=== PATIENT | male | born 1960 | race Caucasian/White ===

== ENCOUNTER → 2016-05-08 | Outpatient (CLI) | payer OTHER ==
[~2016-05-08] MED LIST: ACET-1311 PO; ALLO300T2 PO; IBUP-1451 PO; ONDA4TAB10 SL; TRIA1SPR4 NAE; TRIA3AER NAE; URC10 PO
[2016-05-08 17:42] LABS: COMPLETE YES; EOS % 2.1 %; HEMATOCRIT 43.6 % (42-52); IG% 0.4 %; LYMPH % 26.1 %; LYMPH ABS # 1.47 K/uL (1.2-3.4); MEAN CELL VOLUME 87.7 fL (80-100); MEAN CORPUSCULAR HEMOGLOBIN 29.4 pg (25-34); MEAN CORPUSCULAR HGB CONC 33.5 g/dl (32-36); MEAN PLATELET VOLUME 10.8 fL (7.4-10.4); MONO % 7.4 %; PLATELET COUNT 148 K/uL (130-400); RED BLOOD COUNT 4.97 M/uL (4.7-6.1); WHITE BLOOD COUNT 5.64 K/uL (4.8-10.8)
[2016-05-08 18:20] LABS: ALT/SGPT 34 U/L (12-78); AST/SGOT 15 U/L (15-37); BLOOD UREA NITROGEN 25 mg/dl (7-18); BUN/CREATININE RATIO 27.7 (10-20); CALCIUM 8.3 mg/dl (8.5-10.1); CARBON DIOXIDE 27 mmol/L (21-32); CHLORIDE 111 mmol/L (98-107); CREATININE 0.92 mg/dl (0.60-1.40); GLUCOSE 77 mg/dl (70-99); SODIUM 145 mmol/L (136-145)
[2016-05-08 18:30] LABS: ALB/GLOB RATIO 1.2 (0.9-2); ALKALINE PHOSPHATASE 96 U/L (45-117); THYROID STIMULATING HORMONE 0.881 uIu/ml (0.300-4.500)
== END | disposition home or self-care (01) ==
LOC: C.LAB1850 17:13
PROVIDERS: ATTEND Internal Medicine
DX: E55.9 Vitamin D deficiency, unspecified (principal); N20.0 Calculus of kidney; R53.83 Other fatigue

== ENCOUNTER → 2016-08-24 | Outpatient (CLI) | payer OTHER ==
--- NOTE | 2016-08-24 14:28 | DIAGNOSTIC IMAGING REPORT ---
KUB HISTORY: Staghorn calculus COMPARISON: KUB 12/28/2015. FINDINGS: The bowel gas pattern is unremarkable. There are no dilated loops of small bowel to suggest an obstruction. There are few stones within the lower pole the left kidney. Dominant stone measures 5 mm. No right renal calculi. No ureteral calculi. No pneumoperitoneum or pneumatosis. IMPRESSION: Left-sided nephrolithiasis. No ureteral calculi. Electronically signed by: Nik Beltran M.D. 08/24/2016 2:26 PM Dictated Date/Time: 08/24/2016 2:26 PM
== END | disposition home or self-care (01) ==
LOC: C.RADBC 14:10
PROVIDERS: ATTEND Urology
DX: N20.0 Calculus of kidney (principal)

== ENCOUNTER 2016-09-15 11:37 | Emergency (ER) | payer OTHER ==
[~2016-09-15] VITALS: Ht 182.9 cm; Wt 103.8 kg
[~2016-09-15 11:37] MED LIST changes: -ONDA4TAB10 SL; -TRIA1SPR4 NAE
[2016-09-15 11:40] VITALS: TEMP 36.6; Ht 182.9 cm; Wt 103.8 kg
[2016-09-15 11:51] VITALS: O2SAT 96
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
[2016-09-15 12:11] LABS: MEAN CELL VOLUME 88.1 fL (80-100); MEAN CORPUSCULAR HEMOGLOBIN 30.7 pg (25-34); MEAN CORPUSCULAR HGB CONC 34.9 g/dl (32-36); MEAN PLATELET VOLUME 10.5 fL (7.4-10.4); PLATELET COUNT 140 K/uL (130-400); RED BLOOD COUNT 5.11 M/uL (4.7-6.1); WHITE BLOOD COUNT 6.62 K/uL (4.8-10.8)
[2016-09-15 12:27] LABS: BLOOD UREA NITROGEN 19 mg/dl (7-18); BUN/CREATININE RATIO 18.6 (10-20); CALCIUM 8.5 mg/dl (8.5-10.1); CARBON DIOXIDE 24 mmol/L (21-32); CHLORIDE 108 mmol/L (98-107); GLUCOSE 85 mg/dl (70-99); POTASSIUM 3.8 mmol/L (3.5-5.1); SODIUM 141 mmol/L (136-145)
[2016-09-15] MEDS ORDERED: TRIA1SPR4 NAE (12:42)
[2016-09-15 12:46] VITALS: O2SAT 95
--- NOTE | 2016-09-15 12:50 | DIAGNOSTIC IMAGING REPORT ---
TWO VIEW CHEST CLINICAL HISTORY: Wheezing. Atypical chest pain and dyspnea. FINDINGS: PA and lateral chest radiographs are compared to study dated 07/14/2014. The cardiomediastinal silhouette is unremarkable. Linear atelectasis versus scarring is noted at the left lung base. The lungs and pleural spaces are otherwise clear. There is no pneumothorax. The bony thorax appears intact. IMPRESSION: No active disease in the chest. Electronically signed by: Shon Luis M.D. 09/15/2016 12:49 PM Dictated Date/Time: 09/15/2016 12:48 PM
[2016-09-15 13:51] VITALS: BP 148/92; PULSE 58
[2016-09-15] MEDS ORDERED: ONDA4TAB10 SL (13:52)
== END 2016-09-15 14:04 | disposition home or self-care (01) ==
LOC: C.EDB 11:39 → C.EDC 14:04
DX: R11.0 Nausea (principal); R06.02 Shortness of breath; R42 Dizziness and giddiness; J34.89 Other specified disorders of nose and nasal sinuses; F17.210 Nicotine dependence, cigarettes, uncomplicated

== ENCOUNTER → 2016-11-12 | Outpatient (CLI) | payer OTHER ==
[~2016-11-12] MED LIST changes: +ONDA4TAB10 SL; +TRIA1SPR4 NAE; -TRIA3AER NAE
[2016-11-12 16:57] LABS: BASO % 0.1 %; BASO ABS # 0.01 K/uL (0-0.2); COMPLETE YES; EOS % 1.3 %; HEMATOCRIT 44.5 % (42-52); IG% 0.4 %; LYMPH % 20.2 %; LYMPH ABS # 1.53 K/uL (1.2-3.4); MEAN CELL VOLUME 89.4 fL (80-100); MEAN CORPUSCULAR HEMOGLOBIN 30.1 pg (25-34); MEAN CORPUSCULAR HGB CONC 33.7 g/dl (32-36); MEAN PLATELET VOLUME 10.6 fL (7.4-10.4); MONO % 5.5 %; NEUT % 72.5 %; PLATELET COUNT 154 K/uL (130-400); RED BLOOD COUNT 4.98 M/uL (4.7-6.1); WHITE BLOOD COUNT 7.58 K/uL (4.8-10.8)
[2016-11-12 17:27] LABS: BLOOD UREA NITROGEN 14 mg/dl (7-18); BUN/CREATININE RATIO 14.8 (10-20); CALCIUM 8.2 mg/dl (8.5-10.1); CARBON DIOXIDE 28 mmol/L (21-32); CHLORIDE 109 mmol/L (98-107); CREATININE 0.96 mg/dl (0.60-1.40); GLUCOSE 72 mg/dl (70-99); POTASSIUM 4.1 mmol/L (3.5-5.1); SODIUM 140 mmol/L (136-145)
[2016-11-12 17:30] LABS: CHOLESTEROL 166 mg/dl (0-200); CHOLESTEROL/HDL RATIO 4.9; HDL CHOLESTEROL 34 mg/dl; LDL CHOLESTEROL CALCULATED 74 mg/dl; TRIGLYCERIDES 290 mg/dl (0-150); VERY LOW DENSITY LIPOPROT CALC 58 mg/dl
== END | disposition home or self-care (01) ==
LOC: C.LAB1850 15:52
PROVIDERS: ATTEND Internal Medicine
DX: E55.9 Vitamin D deficiency, unspecified (principal); R53.81 Other malaise; N20.0 Calculus of kidney

== ENCOUNTER → 2017-03-22 | Outpatient (CLI) | payer OTHER ==
[~2017-03-22] MED LIST changes: -ONDA4TAB10 SL
--- NOTE | 2017-03-22 14:46 | DIAGNOSTIC IMAGING REPORT ---
KUB CLINICAL HISTORY: 56 years-old Male presenting with N20.0 Nephrolithiasis. TECHNIQUE: Single supine view of the abdomen was obtained. COMPARISON: 08/24/2016. FINDINGS: Nonobstructive bowel gas pattern. No gross pneumoperitoneum. Allowing for bowel gas and stool, left renal calculi again noted, unchanged in position. No radiographically apparent right renal calculi. Ovoid calcification projects immediately inferior to the left transverse process of L5 along the expected course of the left ureter, not apparent on the prior radiograph. Degenerative changes of the spine. IMPRESSION: 1. Ovoid calcification projects over the course of the left ureter at the level of the L5 transverse process. This could represent a mid left ureteral calculus. 2. Left renal calculi. No radiographically apparent right renal calculi. Electronically signed by: Vladimir Quintana M.D. 03/22/2017 2:44 PM Dictated Date/Time: 03/22/2017 2:41 PM
[2017-03-22 15:23] LABS: HEMATOCRIT 45.1 % (42-52); HEMOGLOBIN 15.5 g/dL (14.0-18.0); MEAN CELL VOLUME 87.2 fL (80-100); MEAN CORPUSCULAR HGB CONC 34.4 g/dl (32-36); MEAN PLATELET VOLUME 10.7 fL (7.4-10.4); PLATELET COUNT 155 K/uL (130-400); RED CELL DISTRIBUTION WIDTH SD 38.4 fL (36.4-46.3); WHITE BLOOD COUNT 5.99 K/uL (4.8-10.8)
[2017-03-22 15:44] LABS: ALBUMIN 3.8 gm/dl (3.4-5.0); ALT/SGPT 41 U/L (12-78); BLOOD UREA NITROGEN 18 mg/dl (7-18); CALCIUM 8.4 mg/dl (8.5-10.1); CARBON DIOXIDE 27 mmol/L (21-32); CHOLESTEROL 193 mg/dl (0-200); CREATININE 0.89 mg/dl (0.60-1.40); GLUCOSE 95 mg/dl (70-99); LIPASE 104 U/L (73-393); SODIUM 138 mmol/L (136-145)
[2017-03-22 15:47] LABS: ALKALINE PHOSPHATASE 95 U/L (45-117); AST/SGOT 22 U/L (15-37); LDL CHOLESTEROL CALCULATED 126 mg/dl; TOTAL PROTEIN 7.2 gm/dl (6.4-8.2)
== END | disposition home or self-care (01) ==
LOC: C.RAD1850 14:16
PROVIDERS: ATTEND Internal Medicine
DX: N20.0 Calculus of kidney (principal); E78.2 Mixed hyperlipidemia; E55.9 Vitamin D deficiency, unspecified; R11.0 Nausea

== ENCOUNTER 2017-10-25 10:38 | Emergency (ER) | payer OTHER ==
[~2017-10-25] VITALS: Ht 182.9 cm; Wt 107.6 kg
[2017-10-25 10:40] VITALS: BP 131/88; TEMP 36.9; Ht 182.9 cm; Wt 107.6 kg
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
[2017-10-25 12:10] VITALS: PULSE 85; O2SAT 98
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
== END 2017-10-25 12:23 | disposition home or self-care (01) ==
LOC: C.EDB 10:39 → C.EDD 12:23
DX: M25.511 Pain in right shoulder (principal); V59.40XA Driver of pick-up truck or van injured in collision with unspecified motor vehicles in traffic accident, initial encounter; Z88.1 Allergy status to other antibiotic agents

== ENCOUNTER 2019-03-25 22:53 | Observation (INO) ==
[2019-03-25] MEDS ORDERED: SODIUM CHLORIDE 0.9% 1000ML 1,000 ML IV ONE (23:21)
[2019-03-25 23:49] LABS: Appearance Urine Cloudy (Clear); Bacteria Urine Automated Negative (Negative); Bilirubin Urine Negative (Negative); Blood Urine 1+ (Negative); Color Urine Yellow; Epithelial Cell Urine Auto 0-5 /lpf (0-5); Glucose Urine UA Negative (Negative); Ketones Urine Negative (Negative); Leukocyte Esterase Urine 3+ (Negative); Nitrite Urine Negative (Negative); Protein Urine Negative (Negative); RBC Urine Automated 0-4 /hpf (0-4); Specific Gravity Urine 1.006 (1.000-1.030); Urobilinogen Urine Negative (Negative); WBC Urine Automated >30 /hpf (0-5); pH Urine 5.5 (4.5-7.5)
[2019-03-26 00:11] LABS: Basophils # (auto) 0.01 K/uL (0-0.2); Basophils % (auto) 0.1 %; Eosinophils # (auto) 0.06 K/uL (0-0.5); Eosinophils % (auto) 0.6 %; Hematocrit (blood only) 44.4 % (42-52); Hemoglobin 15.2 g/dL (14.0-18.0); Immature Granulocytes # (auto) 0.08 K/uL (0.00-0.02); Immature Granulocytes % (auto) 0.7 %; Lymphocytes # (auto) 1.42 K/uL (1.2-3.4); Lymphocytes % (auto) 13.3 %; Mean Corpuscular Hemoglobin 30.4 pg (25-34); Mean Corpuscular Hgb Conc 34.2 g/dL (32-36); Mean Corpuscular Volume 88.8 fL (80-100); Monocytes # (auto) 0.63 K/uL (0.11-0.59); Monocytes % (auto) 5.9 %; Neutrophils # (auto) 8.47 K/uL (1.4-6.5); Neutrophils % (auto) 79.4 %; Platelet Count 170 K/uL (130-400); RDW Coefficient of Variation 12.4 % (11.5-14.5); RDW Standard Deviation 39.4 fL (36.4-46.3); White Blood Count 10.67 K/uL (4.8-10.8)
[2019-03-26 00:15] LABS: Influenza A virus by PCR Neg for Influ A (Neg)
[2019-03-26 00:30] LABS: Alanine Aminotransferase 36 U/L (12-78); Albumin Level 3.3 gm/dl (3.4-5.0); Aspartate Aminotransferase 16 U/L (15-37); BUN Creatinine Ratio 14.6 (10-20); Blood Urea Nitrogen 15 mg/dl (7-18); Calcium 8.3 mg/dl (8.5-10.1); Carbon Dioxide 27 mmol/L (21-32); Chloride 108 mmol/L (98-107); Creatinine Clr Calc Pharmacy 98.3 ml/min; Est GFR (African American) 92.6; Est GFR (Non-African American) 79.9; Glucose 100 mg/dl (70-99); Magnesium 2.1 mg/dl (1.8-2.4); Sodium 139 mmol/L (136-145)
[2019-03-26] MEDS ORDERED: OSELTAMIVIR PHOSPHATE 75 MG CAP PO STA (00:30)
[2019-03-26 00:32] LABS: INR 1.1 (0.9-1.1); Partial Thromboplastin Time 25.9 Seconds (21.0-31.0); Prothrombin Time 10.8 Seconds (9.0-12.0)
[2019-03-26 00:35] LABS: Albumin Globulin Ratio 0.8 (0.9-2); Alkaline Phosphatase 97 U/L (45-117); Bilirubin,Total 0.4 mg/dl (0.2-1); Globulin 4.2 gm/dl (2.5-4.0); Total Protein 7.5 gm/dl (6.4-8.2); Troponin I < 0.015 ng/ml (0-0.045)
[2019-03-26] MEDS ORDERED: SODIUM CHLORIDE 0.9% 1000ML 1,000 ML IV ONE (00:35)
[2019-03-26] MEDS ORDERED: IOVERSOL 100ml IV PRN (00:56)
[2019-03-26] MEDS ORDERED: cefTRIAXone SODIUM 2,000 MG/70 ML BAG IV STA (01:27)
--- NOTE | 2019-03-26 01:45 | Emergency Department Note ---
History of Present Illness General Chief complaint: Urinary Symptoms Stated complaint: FEELS OUT OF SORTS, POSSIBLE UTI History of Present Illness Maximum Pain Intensity: 0 This 58-year-old presents to the ER complaining of urinary symptoms, chills, lightheadedness and weakness Location: Generalized Quality: Weak Severity: Moderate Duration: Past few days Timing: Started a few days ago Context: Symptoms persisted and patient came in Modifying factors: better with rest; worse with urinating Patient is a history of kidney stones and had kidney stone procedures. He follows with [facility]. Patient denies chest pain, dyspnea, cough, congestion, numbness, tingling, localized weakness. Home Medications Home Medications Medication Instructions Recorded Confirmed Type allopurinol 300 mg tablet 300 mg PO DAILY 01/22/19 03/25/19 History cholecalciferol (vitamin D3) 25 2,000 units PO DAILY cap 01/22/19 03/25/19 History mcg (1,000 unit) capsule trospium 20 mg tablet 20 mg PO BID 01/22/19 03/25/19 History Allergies Allergy/AdvReac Type Severity Reaction Status Date / Time amoxicillin Allergy Unknown swelling Unverified 03/25/19 23:31 Past Med/Surg History Medical History (Updated 03/26/19 @ 01:42 by Mar Sanches PA-C) Ureterolithiasis Surgical History History of facial surgery History of rectal surgery S/P cholecystectomy Family History Mother Diabetes Father Diabetes Myocardial infarction Prostate cancer Sister Diabetes Grandfather (Paternal) Colon cancer Grandfather (Maternal) Myocardial infarction Grandmother (Paternal) Myocardial infarction Other Heart disease Hypertension Social History Preferred Language: Amharic Communication Ability: Effective Visual Impairment: No Limitations Hearing Ability: Normal marital status: Single Current Living Situation: Alone current occupational status: employed Feels Safe at Home: Yes Smoking Status: Never smoker Hx Alcohol Use: No (stopped drinking alcohol) Hx Substance Use: No Seatbelt Use: sometimes Sunscreen Use: No Review of Systems A total of 10 systems reviewed and were otherwise negative Physical Exam Vital Signs Vital Signs - 24 hr 03/25/19 22:57 03/25/19 23:35 03/26/19 00:48 Temperature 36.6 C Temperature Source Oral Pulse Rate 90 Pulse Rate [Finger] 86 Respiratory Rate 16 18 Respiratory Depth Normal Blood Pressure 165/84 H Blood Pressure [Right Arm] 158/96 H Blood Pressure Mean 111 Blood Pressure Mean [Right Arm] 116 Pulse Oximetry 97 97 97 Oxygen Delivery Method Room Air Room Air Room Air Sepsis Recent Fever Within 48 Hours No Sepsis New/Unexplained Change in Mental Status No Sepsis Action Taken by Nursing No Action Required VITALS: Vitals are noted on the nurse's note and reviewed by myself. Vital signs stable. GENERAL: White male, in no acute distress, nondiaphoretic, well-developed well- nourished. SKIN: Capillary reflex less than 2 seconds. HEENT: Normocephalic. PERRLA. EOMI. Nares patent. Mucous membranes moist. Neck is supple without nuchal rigidity. HEART: Regular rate and rhythm LUNGS: Clear to auscultation bilaterally without wheezes, rales or rhonchi. No retractions or accessory muscle use. ABDOMEN: Positive bowel sounds x 4. Normal tympanic percussion. Soft, minimal lower abdominal discomfort, without masses or organomegaly. Abad sign negative. No guarding or rebound tenderness. No CVA tenderness MUSCULOSKELETAL: No gross musculoskeletal defects. NEURO: Patient was alert and oriented to person place and time. Normal sensation to light and sharp touch. No focal neurological deficits. Course Administered Medications Ioversol (Optiray 320 100ml) 100 ml IV ONCE PRN PRN Reason: Interaction Checking Stop: 03/30/19 00:55 Last Admin: 03/26/19 00:56 Dose: 92 ml Documented by: [id number] Discontinued Medications Sodium Chloride (Nss 1000ml) 1,000 mls @ 999 mls/hr IV .Q1H1M ONE Stop: 03/26/19 00:21 Last Infusion: 03/26/19 01:26 Dose: 0 mls/hr Documented by: [id number] Admin: 03/26/19 00:09 Dose: 999 mls/hr Documented by: [id number] Sodium Chloride (Nss 1000ml) 1,000 mls @ 999 mls/hr IV .Q1H1M ONE Stop: 03/26/19 01:35 Last Admin: 03/26/19 00:47 Dose: 999 mls/hr Documented by: [id number] Oseltamivir Phosphate (Tamiflu) 75 mg PO NOW STA Stop: 03/26/19 00:31 Last Admin: 03/26/19 00:47 Dose: 75 mg Documented by: [id number] Medical Decision Making Medical Records Attestation: I reviewed the patient's medical records. Home Medications Current Medication List: was personally reviewed by me Laboratory Data Attestation: I reviewed the patient's lab results. Result diagrams: 03/25/19 23:55 03/25/19 23:55 Lab Results 03/25/19 03/25/19 03/25/19 Range/Units 23:37 23:37 23:55 WBC 10.67 (4.8-10.8) K/uL RBC 5.00 (4.7-6.1) M/uL Hgb 15.2 (14.0-18.0) g/dL Hct 44.4 (42-52) % MCV 88.8 (80-100) fL MCH 30.4 (25-34) pg MCHC 34.2 (32-36) g/dL RDW Std Deviation 39.4 (36.4-46.3) fL RDW Coeff of Isis 12.4 (11.5-14.5) % Plt Count 170 (130-400) K/uL MPV 10.0 (7.4-10.4) fL Immature Gran % (Auto) 0.7 % Neut % (Auto) 79.4 % Lymph % (Auto) 13.3 % Bartow % (Auto) 5.9 % Eos % (Auto) 0.6 % Baso % (Auto) 0.1 % Immature Gran # (Auto) 0.08 H (0.00-0.02) K/uL Neut # (Auto) 8.47 H (1.4-6.5) K/uL Lymph # (Auto) 1.42 (1.2-3.4) K/uL Bartow # (Auto) 0.63 H (0.11-0.59) K/uL Eos # (Auto) 0.06 (0-0.5) K/uL Baso # (Auto) 0.01 (0-0.2) K/uL PT (9.0-12.0) Seconds INR (0.9-1.1) APTT (21.0-31.0) Seconds PTT Ratio Sodium (136-145) mmol/L Potassium (3.5-5.1) mmol/L Chloride (98-107) mmol/L Carbon Dioxide (21-32) mmol/L Anion Gap (3-11) BUN (7-18) mg/dl Creatinine (0.6-1.4) mg/dl Est Cr Clr Drug Dosing ml/min Est GFR ( Amer) Est GFR (Non-Af Amer) BUN/Creatinine Ratio (10-20) Glucose (70-99) mg/dl POC Lactic Acid Joel (0.90-1.70) mmol/L Calcium (8.5-10.1) mg/dl Magnesium (1.8-2.4) mg/dl Total Bilirubin (0.2-1) mg/dl AST (15-37) U/L ALT (12-78) U/L Alkaline Phosphatase (45-117) U/L Troponin I (0-0.045) ng/ml Total Protein (6.4-8.2) gm/dl Albumin (3.4-5.0) gm/dl Globulin (2.5-4.0) gm/dl Albumin/Globulin Ratio (0.9-2) Urine Color Yellow Urine Appearance Cloudy A (Clear) Urine pH 5.5 (4.5-7.5) Ur Specific Abie 1.006 (1.000-1.030) Urine Protein Negative (Negative) Urine Glucose (UA) Negative (Negative) Urine Ketones Negative (Negative) Urine Blood 1+ H (Negative) Urine Nitrite Negative (Negative) Urine Bilirubin Negative (Negative) Urine Urobilinogen Negative (Negative) Ur Leukocyte Esterase 3+ H (Negative) Urine WBC (Auto) >30 H (0-5) /hpf Urine RBC (Auto) 0-4 (0-4) /hpf U Hyaline Cast (Auto) 1-5 (0-5) /lpf U Epithel Cells (Auto) 0-5 (0-5) /lpf Urine Bacteria (Auto) Negative (Negative) Influenza Type A (PCR) Neg for Influ A (Neg) Influenza Type B (PCR) Pos for Influ B A* (Neg) 03/25/19 03/25/19 03/26/19 Range/Units 23:55 23:55 00:03 WBC (4.8-10.8) K/uL RBC (4.7-6.1) M/uL Hgb (14.0-18.0) g/dL Hct (42-52) % MCV (80-100) fL MCH (25-34) pg MCHC (32-36) g/dL RDW Std Deviation (36.4-46.3) fL RDW Coeff of Isis (11.5-14.5) % Plt Count (130-400) K/uL MPV (7.4-10.4) fL Immature Gran % (Auto) % Neut % (Auto) % Lymph % (Auto) % Bartow % (Auto) % Eos % (Auto) % Baso % (Auto) % Immature Gran # (Auto) (0.00-0.02) K/uL Neut # (Auto) (1.4-6.5) K/uL Lymph # (Auto) (1.2-3.4) K/uL [place]ow # (Auto) (0.11-0.59) K/uL Eos # (Auto) (0-0.5) K/uL Baso # (Auto) (0-0.2) K/uL PT 10.8 (9.0-12.0) Seconds INR 1.1 (0.9-1.1) APTT 25.9 (21.0-31.0) Seconds PTT Ratio 1.0 Sodium 139 (136-145) mmol/L Potassium 4.0 (3.5-5.1) mmol/L Chloride 108 H (98-107) mmol/L Carbon Dioxide 27 (21-32) mmol/L Anion Gap 4.0 (3-11) BUN 15 (7-18) mg/dl Creatinine 1.04 (0.6-1.4) mg/dl Est Cr Clr Drug Dosing 98.3 ml/min Est GFR ( Amer) 92.6 Est GFR (Non-Af Amer) 79.9 BUN/Creatinine Ratio 14.6 (10-20) Glucose 100 H (70-99) mg/dl POC Lactic Acid Joel 1.83 H (0.90-1.70) mmol/L Calcium 8.3 L (8.5-10.1) mg/dl Magnesium 2.1 (1.8-2.4) mg/dl Total Bilirubin 0.4 (0.2-1) mg/dl AST 16 (15-37) U/L ALT 36 (12-78) U/L Alkaline Phosphatase 97 (45-117) U/L Troponin I < 0.015 (0-0.045) ng/ml Total Protein 7.5 (6.4-8.2) gm/dl Albumin 3.3 L (3.4-5.0) gm/dl Globulin 4.2 H (2.5-4.0) gm/dl Albumin/Globulin Ratio 0.8 L (0.9-2) Urine Color Urine Appearance (Clear) Urine pH (4.5-7.5) Ur Specific Abie (1.000-1.030) Urine Protein (Negative) Urine Glucose (UA) (Negative) Urine Ketones (Negative) Urine Blood (Negative) Urine Nitrite (Negative) Urine Bilirubin (Negative) Urine Urobilinogen (Negative) Ur Leukocyte Esterase (Negative) Urine WBC (Auto) (0-5) /hpf Urine RBC (Auto) (0-4) /hpf U Hyaline Cast (Auto) (0-5) /lpf U Epithel Cells (Auto) (0-5) /lpf Urine Bacteria (Auto) (Negative) Influenza Type A (PCR) (Neg) Influenza Type B (PCR) (Neg) Imaging Data Attestation: I personally reviewed and interpreted this imaging study as follows: Blood Pressure Blood Pressure Findings: Elevated blood pressure Blood Pressure Disposition: Referred to patients primary care provider MDM Narrative Prior records/ancillary studies reviewed and summarized above. Nursing notes reviewed. Additional history obtained from family. The patient's history was concerning for urinary problems, chills, lower abdominal discomfort. Differential diagnosis: Etiologies such as metabolic, infection, hypo/hyperglycemia, electrolyte abnormalities, cardiac sources, intracerebral event, toxicologic, neurologic, as well as others were entertained. Physical examination: As above. ER treatment provided: IV Lock IV fluids, Rocephin, Tamiflu On reassessment the patient felt better. Diagnostics interpretation by me: ECG: Ordered for weakness EKG: Normal sinus, normal intervals, no acute ST-T wave changes. Impression normal sinus interpreted by myself I think arrhythmia is unlikely. EKG shows normal sinus rhythm with no interval abnormalities such as QT prolongation or WPW. There are no findings to suggest Brugada syndrome. Cardiac monitoring in the emergency department reveals no tachycardic or bradycardic dysrhythmia. Hypertrophic cardiomyopathy was considered but there are no clear historical elements pointing toward this. EKG is not suggestive. The QRS voltage is not extremely large and there are no suggestive Q waves. The labs revealed positive influenza B. Lactic acid slightly elevated. Urine concerning for infection and sent for culture. No prior urine cultures. Imaging studies: CT ABDOMEN & PELVIS With Contrast: Lung bases: Lung bases: Normal Distal heart and esophagus: Normal Liver: No intrahepatic lesion or ductal dilation. Gallbladder: Absent Pancreas: Normal Spleen: Normal Adrenals: Normal Kidneys: Right kidney posterior medial mid pole 2.5 cm cyst. Nonobstructive 2, 3 mm left renal midpole cyst. Left-sided hydronephrosis, hydroureter with a 6 mm distal left ureteral stone at the level of the acetabulum image 2: 81. Bowel: Scattered left-sided and sigmoid diverticulosis. Negative for diverticulitis. Left anterior medial abdominal wall 3.3 cm defect with omental fat extending through it. Streaky changes in the mesenteric fat with multiple small lymph nodes scattered around the superior mesenteric vessels consistent with nonspecific panniculitis. Appendix is visualized and normal. Scattered colonic stool. Caliber of the small bowel loops is normal. Pelvis: Urinary bladder is unremarkable. No pelvic free fluid. Bones: Moderate bilateral hip joint and lower lumbar spine facet degenerative changes are seen. Impression: 1. 6 mm distal left ureteral stone with upstream hydroureter and hydronephrosis. 2. Additional left renal mid to lower pole 2, 3 mm stones. 3. Right renal cyst. 4. Medial left anterior abdominal wall hernia with the neck of 3.3 cm. Omental fat is seen extending through it. 5. Mild nonspecific midabdominal panniculitis of the mesentery. Radiologist: Forest Matute MD Chest x-ray with no acute consolidation, pneumothorax or free air per my interpretation Consultation: A consultation was placed with the hospitalist, Dr Walker. He was notified of the patient for evaluation for possible admission. The patient was evaluated in the ER for further treatment. Exam and history seem consistent with UTI with kidney stone concerning for possible pyelonephritis. Patient also has flu B. Patient was started on antibiotics and given Tamiflu. He is agreeable treatment plan of admission. Medicine was consulted. By the evaluation outlined above emergent etiologies such as electrolyte abnormalities, cardiac sources, intracerebral event, toxologic, neurologic, abnormalities blood glucose, metabolic, as well as others were deemed relatively unlikely. The pt informed about the findings as listed above. All questions were answered and pleased with the treatment. The chart was completed utilizing [employer] Speech voice recognition software. Grammatical errors, random word insertions, pronoun errors, and incomplete sentences are an occassional consequence of this system due to software limitations, ambient noise, and hardware issues. Any formal questions or concerns about the content, text, or information contained within the body of this dictation should be directly addressed to the physician assistant administrator for clarification. Case reviewed with my attending Impression & Plan Urinary tract infection, Renal colic on left side, Influenza B Discharge Plan Visit Data Chief Complaint: Urinary Symptoms Stated Complaint: FEELS OUT OF SORTS, POSSIBLE UTI ED Provider: [facility] ED Midlevel Provider: Mar Sanches Discharge Problem: Urinary tract infection, Renal colic on left side, Influenza B Patient Disposition: Admitted As Inpatient Condition: Fair Forms Stand Alone Forms: My [facility] Prescriptions Prescriptions: No Action allopurinol 300 mg tablet 300 mg PO DAILY RF: 0 trospium 20 mg tablet 20 mg PO BID RF: 0 cholecalciferol (vitamin D3) 1,000 unit capsule 2,000 units PO DAILY RF: 0 Referrals Referrals: Arcenio Emerson MD [Primary Care Provider] - Discharge Problem: Urinary tract infection Qualifiers: Urinary tract infection type: acute cystitis Hematuria presence: without hematuria Qualified Code(s): N30.00 - Acute cystitis without hematuria
--- NOTE | 2019-03-26 02:20 | History & Physical Report ---
Date of Service March 26, 2019 Assessment & Plan (1) Ureterolithiasis: 58 y/o M Hx nephrolithiasis. Presents with L flank pain, fevers/rigors, nausea, vomiting and dysuria x [address] of the abdomen demonstrated a 6mm distal L ureteral calculus with related hydronephrosis. Labs are notable for a +UA and a + influenza B swab, although it is unclear why the swab was obtained and does come as a bit of a surprise. Lactic acid is marginally elevated. It is noted that the initial CT report states that panniculitis is present, however, there is no clinical evidence of this. 1) Obstructing calculus with a UTI - pt placed on Ceftriaxone, Flomax, IVF - although distal, the stones size makes spontaneous passage less likely and we have consulted urology. Repeat lactic is pending. The pt takes Allopurinol to prevent additional stones, however, he admits to noncompliance. He has been duly informed that compliance with said medication may help prevent future stone formation. 2) Influenza B + - there is no clinical evidence which correlates with the + swab. He was provided with a dose of Tamiflu in the ER. No additional will be provided. 3) Smoker - does not currently express interest in cessation. Full code - SCDs pending urology evaluation Total time for this admit including review of labs, meds, imaging, records - discussion with pt and ER attending - 41 min (2) Urinary tract infection: History of Present Illness Chief Complaint: URI symptoms, flank/abdominal pain Primary Care Provider: Arcenio Emerson MD 58 y/o M Hx nephrolithiasis. Presents with L flank pain, fevers/rigors, nausea, vomiting and dysuria x [address] of the abdomen demonstrated a 6mm distal L ureteral calculus with related hydronephrosis. Labs are notable for a +UA and a + influenza B swab, although it is unclear why the swab was obtained and does come as a bit of a surprise. Lactic acid is marginally elevated. It is noted that the initial CT report states that panniculitis is present, however, there is no clinical evidence of this. PMH: 1) BPH - in chart - not treated 2) HLD - in primary care notes - borderline - not treated 3) Nephrolithiasis - BL staghorn calculi requiring surgery - uric acid stones Surgical: 1) Cholecystectomy 2) Staghorn calculi surgical excision Social: Smokes 5-6 [place]an cigarettes daily - states he does not inhale. Does not drink alcohol. Mostly retired. Family: Mother had dementia - at age 88 Father age 82 "wore out" Allergies Allergy/AdvReac Type Severity Reaction Status Date / Time amoxicillin Allergy Unknown swelling Unverified 03/25/19 23:31 Home Medications Home Medications Medication Instructions Recorded Confirmed Type allopurinol 300 mg tablet 300 mg PO DAILY 01/22/19 03/25/19 History cholecalciferol (vitamin D3) 25 2,000 units PO DAILY cap 01/22/19 03/25/19 History mcg (1,000 unit) capsule trospium 20 mg tablet 20 mg PO BID 01/22/19 03/25/19 History Past Med/Surg History Family History Mother Diabetes Father Diabetes Myocardial infarction Prostate cancer Sister Diabetes Grandfather (Paternal) Colon cancer Grandfather (Maternal) Myocardial infarction Grandmother (Paternal) Myocardial infarction Other Heart disease Hypertension Social History Preferred Language: Nicaraguan Communication Ability: Effective Visual Impairment: No Limitations Hearing Ability: Normal marital status: Single Current Living Situation: Alone current occupational status: employed Feels Safe at Home: Yes Smoking Status: Never smoker Hx Alcohol Use: No (stopped drinking alcohol) Hx Substance Use: No Seatbelt Use: sometimes Sunscreen Use: No Review of Systems Review of Systems: Gen: + Feveres, rigors, malaise ENT: Denies congestion, throat pain, hearing loss Eyes: Denies acute visual changes CV: Denies CP, palpitations Pulmonary: Denies SOB, cough, wheezing GI: + nausea and vomiting : Burning with urination - L flank pain Neuro: Denies acute or unilateral weakness, acute gait impairment, headache or acute visual changes Musculoskeletal: Denies joint pain, inflammation Endocrine: Denies polydipsia, polyuria Skin: Denies acute rashes or ulcers Physical Exam Physical Exam: General: AAO x 3, no distress ENT: No erythema or exudates, no thrush Eyes: CLIFFORD, EOMI Head and neck: Normocephalic, atraumatic, No JVD, neck is supple. Chest/heart: Nontender, S1,2, RRR, no murmurs, no gallops Lungs: CTAB, no wheezing or crackles Abdomen: Nontender, nondistended, BS+ - the abdomen is soft and there is no warmth, tenderness or erythema to support panniculitis Neuro: AAO x 3, speech is clear, no unilateral weakness or loss of sensation, coordination intact Musculoskeletal: No joint inflammation, muscle tenderness, FROM Skin: No acute rashes or ulcers Extremities: No clubbing, cyanosis, edema Results & Data Vital Signs (Past 12 Hours) Vital Signs Temp Pulse Pulse Resp BP BP Pulse Ox 03/26/19 00:48 86 18 158/96 H 97 03/25/19 23:35 97 03/25/19 22:57 97.9 F 90 16 165/[address] abdomen: 6mm obstructing calculus inthe distal L ureter L hydronephrosis Abdominal hernia and panniculitis. Code Status & VTE Plan VTE Prophylaxis Plan VTE Prophylaxis will be ordered: Yes PG Care Time/CCT Total # of Minutes Spent Total Time Spent with Patient: Total time spent is greater than 50% in coordination of care (as documented) at patient's floor/unit and/or counseling patient: (1) Urinary tract infection Hematuria presence: without hematuria Urinary tract infection type: acute cystitis Qualified Code(s): N30.00 - Acute cystitis without hematuria
[2019-03-26] MEDS ORDERED: MAGNESIUM HYDROXIDE SUSP 30 ML UDC PO PRN (03:03)
[2019-03-26] MEDS ORDERED: ONDANSETRON INJ 2 MG/ML 2 ML VIAL IV PRN (03:03)
[2019-03-26] MEDS ORDERED: ALUMINUM/MAGNESIUM SUSP 30 ML UDC PO PRN (03:03)
[2019-03-26] MEDS ORDERED: ZOLPIDEM TARTRATE 5 MG TAB PO PRN (03:03)
[2019-03-26] MEDS ORDERED: ACETAMINOPHEN 325 MG TAB PO PRN (03:03)
[2019-03-26] MEDS: D5W AND LACTATED RINGERS 1,000 ML IV SCH ×2 (03:54→11:49)
--- NOTE | 2019-03-26 07:10 | XRay Report ---
XR chest 1V portable CLINICAL HISTORY: Sepsis. COMPARISON STUDY: Chest radiograph July 13, 2013. FINDINGS: Lung volumes are at the lower limits of normal. There is no pneumothorax or pleural effusio n. There is no consolidation or evidence for pulmonary edema. Cardiomediastinal silhouette is normal. IMPRESSION: No acute cardiopulmonary findings. ACT 112: Negative or not required by law. Electronically signed by: Pavan Vargas M.D. 03/26/2019 7:08 AM
--- NOTE | 2019-03-26 07:22 | CT Scan Report ---
ABDOMEN AND PELVIS CT WITH IV CONTRAST CT DOSE: 855.70 mGy.cm HISTORY: Acute lower abdominal pain with urinary tract infection lower abd pain, UA sx, chills, ?pro state/kidney pr TECHNIQUE: Multiaxial CT images of the abdomen and pelvis were performed following the IV administrat ion of 92 cc of Optiray 320, A dose lowering technique was utilized adhering to the principles of AL AL. COMPARISON STUDY: CT abdomen and pelvis 04/08/2013 FINDINGS: Mild bronchial wall thickening of the right lung base. Lung bases are otherwise clear. There is no pn eumatosis or pneumoperitoneum. The imaged inferior cardiac chambers appear unremarkable. Gallbladder appears surgically absent. Spleen is enlarged measuring up to 15.8 cm in length. Liver is unremarkabl e with 5 mm hypodensity of the hepatic dome, too small to characterize and likely benign. No intrahep atic biliary ductal dilation. Patency of the hepatic and portal veins. Adrenal glands and pancreas ar e also within normal limits. 2.4 cm cyst of the medial aspect interpolar right kidney. There are least 3 nonobstructing calculi no santhosh about the left kidney measuring up to 4 mm. Multifocal cortical scarring and parenchymal thinning of the left kidney is also noted. Probable cyst of the interpolar left kidney posteriorly, 7 mm. Mil d left-sided hydroureteronephrosis with urothelial thickening of the collecting system and ureter. Th ere is an obstructing 7 x 5 x 10 mm calculus of the distal left ureter approximately 1.8 cm proximal to the ureterovesicular junction. Mild bladder wall thickening with partial distention. Prostamegaly. No aortic aneurysm or dissection. No adenopathy. Stranding of the mid mesentery with mildly prominent lymph nodes suggest mesenteric vasculitis. No toya wel obstruction or bowel wall thickening. Colonic diverticulosis without acute diverticulitis. Normal appendix. Fat filled left paracentral supraumbilical abdominal wall hernia is noted with diastases o f 3.5 cm. Stranding and edema involves the hernia. Soft tissues are otherwise unremarkable. Degenerat pasha changes of the spine, pelvis and hips. No acute fracture identified. IMPRESSION: 1. Mild left-sided hydroureteronephrosis secondary to a 7 x 5 x 10 mm calculus of the distal left ure ter approximately 1.8 cm proximal to the ureterovesicular junction. Mild associated urothelial thicke leona of the left renal collecting system and left ureter may be reactive or reflect associated infect ious ureteritis/pyelitis. Correlate with urinalysis. 2. Nonobstructing left nephrolithiasis. 3. No bowel obstruction or bowel wall thickening. 4. Colonic diverticulosis without acute diverticulitis. 5. Mild splenomegaly. 6. Small to moderate fat filled left paracentral supraumbilical hernia is noted with mild associated inflammatory stranding. Correlate with clinical exam findings to exclude a nonreducible hernia. 7. Prostamegaly with mild urinary bladder wall thickening. ACT 112: Negative or not required by law. The above report was generated using voice recognition software. It may contain grammatical, syntax o r spelling errors. Electronically signed by: Krishna Barber M.D. 03/26/2019 7:20 AM
--- NOTE | 2019-03-26 07:56 | Urology Consultation ---
Date of Consultation March 26, 2019 Assessment & Plan (1) Ureterolithiasis: (2) Renal colic on left side: 58yo M with hx stones admitted with 10mm distal left ureteral stone, moderate hydro, +flu UA not overly suspicious for UTI, UC&S pending. Discussed options with pt and Dr. Mayberry. Highly unlikely pt to pass stone spontaneously, stone is easily visible on KUB. He is a good candidate for outpatient ESWL. Recommend discharge home with abx given pending UC&S however he is nontoxic, therefore stone treatment does need to be delayed. Risks and benefits reviewed. Careplan discussed with primary team, after their evaluation hopeful patient can be discharged today to arrange for outpatient procedure tomorrow. Please instruct pt to report directly to [facility] upon discharge for surgical paperwork. Thank you for allowing us to participate in the acute care of Mr. Patel. Please reconsult us with additional questions, concerns or changes in patient status. History of Present Illness Reason for Consultation: stone Requesting Physician: Dr. Bonilla Attending Physician: Reinaldo Bonilla History of Present Illness 58yo M, admitted via [facility] ER with c/o L flank pain, fevers/rigors, nausea, vomiting and dysuria x [address] reveals 6mm distal L ureteral calculus with related hydronephrosis. Labs are notable for a +UA and a + influenza B swab Lactic acid mildly elevated. Cr and WBC wnl. Pt known to our practice. Established with Dr. Langston for care of stones, BPH, CaP screening. Has not required surgical intervention for some time. Hx bilateral PCNL in 2013, doing fairly well from stone standpoint until this admission. He appears comfortable and nontoxic on exam, denies acute discomfort. denies n/f/v/c. Allergies Allergy/AdvReac Type Severity Reaction Status Date / Time amoxicillin Allergy Unknown swelling Unverified 03/25/19 23:31 Home Medications Home Medications Medication Instructions Recorded Confirmed Type allopurinol 300 mg tablet 300 mg PO DAILY 01/22/19 03/25/19 History cholecalciferol (vitamin D3) 25 2,000 units PO DAILY cap 01/22/19 03/25/19 History mcg (1,000 unit) capsule trospium 20 mg tablet 20 mg PO BID 01/22/19 03/25/19 History Patient History Medical History Ureterolithiasis Surgical History History of facial surgery History of rectal surgery S/P cholecystectomy Family History Mother Diabetes Father Diabetes Myocardial infarction Prostate cancer Sister Diabetes Grandfather (Paternal) Colon cancer Grandfather (Maternal) Myocardial infarction Grandmother (Paternal) Myocardial infarction Other Heart disease Hypertension Social History Preferred Language: Erit[place]an Communication Ability: Effective Visual Impairment: No Limitations Hearing Ability: Normal Knife Edger Required: No Beliefs That Will Affect Care: None marital status: Single Current Living Situation: Alone current occupational status: employed Feels Safe at Home: Yes Smoking Status: Current every day smoker Tobacco Type: cigars ; Cigarettes Per Day: 10 ; Hx Alcohol Use: No Hx Substance Use: No Seatbelt Use: sometimes Sunscreen Use: No Review of Systems Review of Systems: All systems reviewed & are unremarkable except as noted in HPI & below Physical Exam 2 Physical Exam: A&Ox3 Resp rate regular abd soft, some left sided lower abdominal tenderness as expected Results & Data Vital Signs (Past 12 Hours) Vital Signs Temp Pulse Pulse Resp BP BP BP 03/26/19 07:30 36.7 C 77 20 136/88 03/26/19 02:50 36.8 C 86 18 172/60 H 03/26/19 02:26 71 18 151/87 H 03/26/19 00:48 86 18 158/96 H 03/25/19 23:35 03/25/19 22:57 36.6 C 90 16 165/84 H Pulse Ox 03/26/19 07:30 95 03/26/19 02:50 97 03/26/19 02:26 97 03/26/19 00:48 97 03/25/19 23:35 97 03/25/19 22:57 97 PG Care Time/CCT Total # of Minutes Spent Total Time Spent with Patient: Total time spent is greater than 50% in coordination of care (as documented) at patient's floor/unit and/or counseling patient:
--- NOTE | 2019-03-26 08:10 | XRay Report ---
KUB HISTORY: Follow up study in a patient with renal calculi stone disease COMPARISON: CT abdomen and pelvis March 26, 2019 FINDINGS: The bowel gas pattern is non-obstructive. There is no organomegaly. Nonobstructing left re nal calculi are noted measuring up to 4 mm. 10 mm calculus of the distal left ureter appears unchange d in positioning. No pneumoperitoneum or pneumatosis. Degenerative changes of the spine, pelvis and h ips. No fracture. IMPRESSION: 1. Unchanged positioning of the 10 mm calculus of the distal left ureter. 2. Left nephrolithiasis. ACT 112: Negative or not required by law. The above report was generated using voice recognition software. It may contain grammatical, syntax o r spelling errors. Electronically signed by: Kirshna Barber M.D. 03/26/2019 8:09 AM
[2019-03-26] MEDS ORDERED: OSELTAMIVIR PHOSPHATE 75 MG CAP PO SCH (09:00)
[2019-03-26] MEDS ORDERED: SOD PHOSPHATE/SOD BIPHOSPHATE ENEMA 132 ML BTL PR STA (12:43)
[2019-03-26] MEDS ORDERED: cefTRIAXone SODIUM 2,000 MG in DEXTROSE 5% 50 ML IV SCH (20:00)
[2019-03-26] MEDS ORDERED: CIPROFLOXACIN 500 MG TAB PO SCH (21:00)
[2019-03-26] MEDS ORDERED: TAMSULOSIN HCL 0.4 MG CAP PO SCH (21:00)
--- NOTE | 2019-03-27 08:14 | Electrocardiogram Report ---
Test Reason : Blood Pressure : / mmHG Vent. Rate : 078 BPM Atrial Rate : 078 BPM P-R Int : 144 ms QRS Dur : 088 ms QT Int : 396 ms P-R-T Axes : 042 005 037 degrees QTc Int : 451 ms Normal sinus rhythm Normal ECG When compared with ECG of 15-SEP-2016 11:48, No significant change was found Confirmed by Viraj Savage ([id number]) on 03/26/2019 5:36:26 PM Referred By: REFERRED SELF Confirmed By:Toni Savage
--- NOTE | 2019-03-31 22:50 | Discharge Summary ---
Date of Service March 26, 2019 Admission HPI Per Admitting Provider 58 y/o M Hx nephrolithiasis. Presents with L flank pain, fevers/rigors, nausea, vomiting and dysuria x [address] of the abdomen demonstrated a 6mm distal L ureteral calculus with related hydronephrosis. Labs are notable for a +UA and a + influenza B swab, although it is unclear why the swab was obtained and does come as a bit of a surprise. Lactic acid is marginally elevated. It is noted that the initial CT report states that panniculitis is present, however, there is no clinical evidence of this. PMH: 1) BPH - in chart - not treated 2) HLD - in primary care notes - borderline - not treated 3) Nephrolithiasis - BL staghorn calculi requiring surgery - uric acid stones Surgical: 1) Cholecystectomy 2) Staghorn calculi surgical excision 1990s Social: Smokes 5-6 [place] cigarettes daily - states he does not inhale. Does not drink alcohol. Mostly retired. Family: Mother had dementia - at age 88 Father age 82 "wore out" Principal Diagnosis left ureteroolithiasis Discharge Exam General: AAO x 3, no distress ENT: No erythema or exudates, no thrush Eyes: CLIFFORD, EOMI Head and neck: Normocephalic, atraumatic, No JVD, neck is supple. Chest/heart: Nontender, S1,2, RRR, no murmurs, no gallops Lungs: CTAB, no wheezing or crackles Abdomen: Nontender, nondistended, BS+ - the abdomen is soft and there is no warmth, tenderness or erythema to support panniculitis Neuro: AAO x 3, speech is clear, no unilateral weakness or loss of sensation, coordination intact Musculoskeletal: No joint inflammation, muscle tenderness, FROM Skin: No acute rashes or ulcers Extremities: No clubbing, cyanosis, edema Discharge Data Allergies Allergy/AdvReac Type Severity Reaction Status Date / Time amoxicillin Allergy Unknown swelling Verified 03/27/19 08:24 Consultations 03/26/19 01:28 ED Decision to Admit Stat 03/26/19 03:03 Consult Urology Routine Ordered Studies 03/25/19 23:16 CT abd pelvis IV con only Urgent Hospital Course (1) Ureterolithiasis: 58 y/o M Hx nephrolithiasis. Presents with L flank pain, fevers/rigors, nausea, vomiting and dysuria x [address] of the abdomen demonstrated a 6mm distal L ureteral calculus with related hydronephrosis. Labs are notable for a +UA and a + influenza B swab, although it is unclear why the swab was obtained and does come as a bit of a surprise. Lactic acid is marginally elevated. It is noted that the initial CT report states that panniculitis is present, however, there is no clinical evidence of this. 1) Obstructing calculus with a UTI - pt placed on Ceftriaxone, Flomax, IVF - although distal, the stones size makes spontaneous passage less likely and we have consulted urology. Repeat lactic is pending. The pt takes Allopurinol to prevent additional stones, however, he admits to noncompliance. He has been duly informed that compliance with said medication may help prevent future stone formation. INPUT FROM UROLOGY BELOW (IN BOLD) 58yo M with hx stones admitted with 10mm distal left ureteral stone, moderate hydro, +flu UA not overly suspicious for UTI, UC&S pending. Discussed options with pt and Dr. Mayberry. Highly unlikely pt to pass stone spontaneously, stone is easily visible on KUB. He is a good candidate for outpatient ESWL. Recommend discharge home with abx given pending UC&S however he is nontoxic, therefore stone treatment does need to be delayed. Risks and benefits reviewed. Careplan discussed with primary team, after their evaluation hopeful patient can be discharged today to arrange for outpatient procedure tomorrow. Please instruct pt to report directly to [address] [place] [id number] upon discharge for surgical paperwork. Thank you for allowing us to participate in the acute care of Mr. Patel. Please reconsult us with additional questions, concerns or changes in patient status. 2) Influenza B + - there is no clinical evidence which correlates with the + swab. He was provided with a dose of Tamiflu in the ER. will continue at discharge. 3) Smoker - does not currently express interest in cessation. Full code - SCDs pending urology evaluation (2) Urinary tract infection: Total Time Total Time Spent Total Time Spent (In Minutes): 32 Total Time Includes: Examination of the Patient, Discharge Planning and Medication Reconciliation Discharge Plan Discharge Items Patient Disposition: Home - Self-Care Reason For Visit: OBTRUCTIVE CALCULUS / UTI Discharge Diagnosis: Obstructive calculus Condition on Discharge: Fair Activity: Resume your previous activity Non-emergency contact: Primary Care Provider Call non-emergency contact if: you have any medication questions Follow-up/Referrals: ProArcenio MD [Primary Care Provider] - Diet: Regular Addtl Attending Provider Instructions: Please report to [facility] at [address] directly after discharge from hospital to sign surgical paperwork. What to Expect after your ESWL procedure: It can take a day to several weeks for the pieces of stone to leave your body. Drink plenty of liquids to help flush your system. During this time: - Your urine may be cloudy or slightly bloody. You may even see small pieces of stone. - You may have some pain. Okay to take Tylenol or pain medication as prescribed. - You may strain your urine to collect some stone particles if you have never had a stone analysis before and you are interested. - Please bring specimen to your follow-up appointment to be studied in the lab, if able. When to call [facility] at [phone]: Fever of 101F or higher Heavy bleeding Pain that is not controlled with medicine Uncontrolled vomiting Problems urinating or inability to urinate Pending Studies at Discharge: No Stand-Alone Forms: My [facility], Smoking Cessation Medications and DC Order Prescriptions: New oseltamivir [Tamiflu] 75 mg Capsule 75 mg PO BID Qty: 9 RF: 0 tamsulosin 0.4 mg Capsule 0.4 mg PO HS Qty: 30 RF: 0 Continued allopurinol 300 mg tablet 300 mg PO DAILY RF: 0 trospium 20 mg tablet 20 mg PO BID RF: 0 cholecalciferol (vitamin D3) 1,000 unit capsule 2,000 units PO DAILY RF: 0 No Action ciprofloxacin HCl 500 mg tablet 500 mg PO BID 5 Days Qty: 10 RF: 0 potassium citrate 10 mEq (1,080 mg) Tablet Extended Release 10 meq PO TID RF: 0 oxycodone-acetaminophen [Percocet] 5-325 mg tablet 1 tab PO Q6H PRN (Reason: pain) Qty: 14 RF: 0 Discharge Orders: Discharge Order (Routine); Ordered 03/26/19 Ordered By: Reinaldo Covarrubias/Other Patient Handouts: ED Strainer Urine Admission Data Admit Date/Time: 03/26/19 02:13 Attending Provider: Reinaldo Bonilla Admit Provider: Sami Walker Primary Care Provider: Arcenio Emerson Other Providers: Reginald Dominguez ; Sami Walker Other Interventions: Discharge Summary Assessment (RN) Last Done: 03/26/19 12:23 DC Date/Time DO NOT enter until pt leaves facility: 03/26/19 13:49
== END 2019-03-26 13:49 | disposition home or self-care (01) ==
LOC: ED 22:53 → INTOOBSV 03-26 02:13 → SUATTDRO 03-26 02:13 → 3W 03-26 02:13